=== PATIENT | male | born 1995 | race Caucasian/White ===

== ENCOUNTER 2023-08-26 12:32 | Emergency (ER) | payer BC, SELFPAY ==
[2023-08-26 12:42] VITALS: BP 128/80
[2023-08-26 12:56] LABS: Urine Albumin 1+ (Neg - Trace); Urine Bilirubin Negative (Negative); Urine Character Slightly Cloudy (Clear); Urine Color Yellow; Urine Glucose Negative (Negative); Urine Ketone Negative (Negative); Urine Leukocyte 2+ (Negative); Urine Nitrite Negative (Negative); Urine Occult Blood 2+ (Negative); Urine Urobilinogen Negative (Neg - 1+)
[2023-08-26 13:04] LABS: Urine Bacteria Moderate (Negative); Urine White Cell 50-60 /HPF (0-5)
--- NOTE | 2023-08-26 13:58 | ED.GENMED ---
History of Present Illness
General
Chief Complaint: Male Genito-Urinary Symptoms
Time Seen by Provider: 08/26/23 13:21
Travel History
Have you had any contact with someone who has COVID-19?: No
Do you have any symptoms of coronavirus? Fever > 100 degrees, chills, cough, shortness of breath, sore throat, loss of taste or smell, muscle aches, or headache?: No
History of Present Illness
History of Present Illness:
28-year-old male with no significant past medical history presents the emergency department for evaluation of dysuria and right testicular pain and swelling. He states he has had dysuria and urgency as well as penile discharge since July, was
seen by his primary care physician and reportedly had negative urine studies. Was seen by urology earlier this week and was ordered to obtain an outpatient CT scan which has not yet been approved. For the past 48 hours developed increased dysuria
and right scrotal swelling. Denies any associated fevers or chills. Denies any concern for STDs and notes he was tested negative for gonorrhea chlamydia earlier by his primary care evaluation.
Review of Systems
Review of Systems
Allergies reviewed?: Yes
All Other Systems: ROS reviewed and negative except as documented in HPI and ROS
Phy Exam
Physical Exam
Physical Exam:
GEN: Well appearing, NAD, WDWN
HEENT: Oral mucosa moist, no scleral icterus
Cardiac: Regular rate
Lung: No respiratory distress, no tachypnea
: Moderate erythema and swelling to the right hemiscrotum with focal epididymal tenderness. No associated adenopathy or inguinal hernia
MSK: No gross deformity or injuries
Skin: Good color, no pallor or jaundice, no rashes
Neuro: AO x3, moves all extremities freely
Psych: Calm, cooperative
Course
Orders/Labs/Results
Orders:
Orders
08/26/23 12:48
Urinalysis Reflex To Culture Urgent
Date Specimen was Collected: 08/26/23
Time Specimen was Collected: 12:45
Urine Microscopic Reflex Cult Urgent
Urine Culture Urgent
DORINDA Source: U
Specimen Description:
Date Specimen was Collected: 08/26/23
Time Specimen was Collected: 12:45
08/26/23 13:57
US Scrotum Urgent
Comment:
Reason For Exam: R testicular swelling
08/26/23 14:08
Chlamydia/GC by PCR Urgent
DORINDA Source: Urine
Specimen Description:
Source:: URINE
Date Specimen was Collected: 08/26/23
Time Specimen was Collected: 14:07
Abnormal Lab Results
08/26/23
12:48
Ur Occult Blood Reflex 2+ A
(Negative)
Leukocyte Esterase Rfl 2+ A
(Negative)
Urine RBC 7-10 A /HPF
(0-2)
Urine WBC (Reflex) 50-60 A /HPF
(0-5)
Urine Bacteria (Reflex) Moderate A
(Negative)
Urine Albumin (Reflex) 1+ A
(Neg - Trace)
Vital Signs
Initial and Last Documented VS:
Initial Vital Signs
Temp Pulse Resp BP Pulse Ox
98.7 F 97 18 128/80 100
08/26/23 12:42 08/26/23 12:42 08/26/23 12:42 08/26/23 12:42 08/26/23 12:42
Last Documented Vital Signs
Temp Pulse Resp BP Pulse Ox
98.7 F 97 18 128/80 100
08/26/23 12:42 08/26/23 12:42 08/26/23 12:42 08/26/23 12:42 08/26/23 12:42
MDM/Problems Addressed
MDM/Problems Addressed:
Clinical findings and labs consistent with acute epididymitis. Will start the patient on 14-day course of Bactrim given his negative GC chlamydia test. Has established urology follow-up
*Critical Care Note
Total Time (30-74mins, 75-104mins- exclusive of procedures): Not Applicable
ED Attending Note
-
Portions of this chart may have been created with voice recognition software.� Occasional wrong word or��sound alike� substitutions may have occurred due to the inherent limitations of voice recognition software.
Discharge Plan
Departure
Patient Disposition: Home (Routine Discharge)
Date of Disposition: 08/26/23
Time of Disposition: 16:55
Patient with high blood pressure during this ER visit?: No
Discharge Problem:
Acute epididymitis
Instructions: Epididymitis (DC)
Prescriptions:
New
sulfamethoxazole-trimethoprim [Bactrim DS] 800-160 mg tablet
1 tab PO BID 14 Days Qty: 28 0RF
Referrals:
Clay Bullard MD [Family Provider] -
Interventions
Interventions:
*Risk Screen - Suicide Last Done: 08/26/23 12:44
*General Assessment Last Done: 08/26/23 13:21
*Neglect/Abuse Screening Last Done: 08/26/23 12:44
ED- Fall Risk Assessment Last Done: 08/26/23 13:21
*ED COVID-19 Vaccine History Last Done: 08/26/23 13:21
*Nursing Disposition Last Done: 08/26/23 17:01
ED-Male Genitourinary Assessment Last Done: 08/26/23 13:21
Discharge Date and Time
Discharge Date/Time: 08/26/23 17:03
== END 2023-08-26 17:03 | disposition home or self-care (01) ==
LOC: EMR 12:32
PROVIDERS: EMERGENCY PHYSICIAN Emergency Medicine; FAMILY PHYSICIAN Family Medicine
DX: N45.1 Epididymitis (principal)
CPT/HCPCS: 99284; 76870; 81003; 81015; 87086; 87491; 87591; 93976

== ENCOUNTER → 2023-08-30 14:48 | Outpatient (REF) | payer BC, SELFPAY | LOC: HWRAD 14:48 | PROVIDERS: ATTENDING PHYSICIAN Specialist; FAMILY PHYSICIAN Family Medicine | DX: R30.0 Dysuria (principal) | CPT/HCPCS: 74178; Q9967 ==